=== PATIENT | male | born 1975 | race Caucasian/White ===

== ENCOUNTER 2016-11-27 14:50 | Emergency (ER) | payer SELFPAY ==
[2016-11-27 15:19] VITALS: BMI 34.7
--- NOTE | 2016-11-27 15:40 | EDPRACDOC ---
- General Information Chief Complaint: Back Pain Stated Complaint: SCIATIC PAIN Time Seen by Provider: 11/27/16 15:29 Home Medications: Home Medications Pravastatin Sodium 20 mg PO DAILY 05/05/13 Tramadol HCl [Ultram] 100 mg PO Q6H 05/05/13 Ondansetron [Zofran Odt] 4 mg PO Q6H PRN #15 tab.rapdis 11/13/14 Ciprofloxacin HCl [Cipro] 500 mg PO BID #20 tab 09/10/15 Hydrocodone Bit/Acetaminophen [Lortab 5/325] 1 tab PO Q4H PRN #20 tab 09/10/15 Promethazine [Phenergan] 25 mg PO Q8H PRN #30 tab 09/10/15 Cyclobenzaprine HCl [Flexeril] 10 mg PO TID PRN #20 tablet 11/27/16 Hydrocodone Bit/Acetaminophen [Hydrocodon-Acetaminophen 5-325] 1 tab PO Q6 PRN # 15 tab 11/27/16 Prednisone [Deltasone, Orasone] 40 mg PO DAILY 5 Days 11/27/16 Promethazine Dextromethorphan [Phenergan DM] 5 ml PO Q6 PRN #120 ml 11/27/16 Allergies/Adverse Reactions: Allergies Allergy/AdvReac Type Severity Reaction Status Date / Time No Known Allergies Allergy Verified 09/10/15 04:46 - History of Present Illness Onset: YESTERDAY HPI: PT COMPLAINS OF "BACK WENT OUT", COMPLAINS OF SHARP PAIN IN RIGHT LOWER BACK, PT HAS HX OF "SLIPPED DISC", STATES HIS BACK "GOES OUT" AT TIMES. PT ALSO STATES HE HAS HAD FEVERS, COUGH, CONGESTION SINCE LAST NIGHT WELL. Pain Location: Reports: Right, Lower, Lumbar Pain Radiates To: Reports: None Pain Caused By: Reports: Spontaneous Relevant History: Reports: Chronic back pain Pain Severity: Reports: Severe Pain Quality: Reports: Sharp, Stabbing Worsened By: Reports: Movement, Twisting Associated Signs and Symptoms: Denies: Abdominal Pain, Dysuria, Hematuria, Nausea, Vomiting ED Past Medical History - History Reviewed Yes Nurses notes reviewed and agree except as marked - Patient Medical History Cardiac History: Reports: Hypercholesterolemia Additional Past Medical History: SCIATICA. SLIPPED LUMBAR DISC - Social Medical History Smoking Status: Former smoker ETOH: None Substance Abuse: None EDM Review of Systems - Review of Systems Constitutional: Fever Eyes: negative: Blurred Vision, Double Vision Ears: negative: Drainage, Pain Throat: negative: Pain Nose: Congestion, Discharge Respiratory: Cough. negative: Shortness of Breath, Wheezing Cardiovascular: negative: Chest Pain, Palpitations Gastrointestinal: negative: Diarrhea, Nausea, Pain, Vomiting Genitourinary: negative: Dysuria, Frequency Neurological: negative: Dizziness, Headache, Numbness, Weakness Musculoskeletal: Back Integumentary: No Symptoms Reported - Physical Exam Constitutional: Alert (Awake), No apparent distress Oriented to: Time, Person, Place Last recorded Vital Signs: Last Vital Signs Temp 101.5 F H 11/27/16 15:17 Pulse 113 11/27/16 15:17 Resp 20 11/27/16 15:17 BP 146/85 11/27/16 15:17 Pulse Ox 96 11/27/16 15:17 Oxygen Pulse Oxygen Saturation 96 O2 Device Room Air Oxygen Flow Rate Fraction of Inspired Oxygen ( FIO2) - HEENT Head: Normal ( normocephalic) Eye Exam: Normal (PERRL, EOMI, Sclera white) Oropharynx: Normal (Pharynx:Moist without exudate,Gums-no swelling) Tympanic Membrane: Dull ENT EAC: Normal TMJ: Normal Nose: No Symptoms Reported (septum midline) Neck: Normal (FROM, trachea at midline) - Respiratory/Cardiovascular Respiratory: Normal - CTA (BBS clear to auscultation without adventitious sounds ) Cardiovascular: Normal (RRR without murmur, gallop or rub) - GI Auscultation: Normal (NABS) Palpation: Normal (Soft,No rebound or guarding, non distended) Tenderness: Non tender Nieto's Sign: Negative - Musculoskeletal Back: Normal (Non-Tender) Extremities: Normal (Normal tone, Pulses 2+ No cyanosis or edema, FROM) - Integumentary Skin: Normal, Warm, Dry Lymphatics: Normal (no adenopathy) - Neurologic Memory Impaired: Normal Motor Function: Normal (Normal tone, Pulses 2+ No cyanosis or edema, FROM) Cranial Nerve: Normal (CN II-X11 intact sensation, strength 5/5) Cerebellar: Normal Mood Description: Normal Perception: Normal ED Back Exam - Neurologic Motor Deficit: None - Musculoskeletal Cervical: Normal Thoracic: Normal Lumbar: Tender Midline: Tender Paraspinous: Tender Straight Leg Raise: Negative Pelvis: Normal - Differential Diagnosis DJD, HNP, Musculoskeletal pain, Strain - Results 11/27/16 16:24 Microbiology 11/27/16 15:40 Nasal Washing/Aspirate Or Swab Influenza Type A Antigen Screen - Final NEGATIVE Please note: A NEGATIVE result does not exclude an influenza virus infection. It is a presumptive result and, if required, confirmation should be done using either a virus culture or an FDA-cleared influenza A&B molecular assay. ("NORMAL" value = "NEGATIVE".) 11/27/16 15:40 Nasal Washing/Aspirate Or Swab Influenza Type B Antigen Screen - Final NEGATIVE Please note: A NEGATIVE result does not exclude an influenza virus infection. It is a presumptive result and, if required, confirmation should be done using either a virus culture or an FDA-cleared influenza A&B molecular assay. ("NORMAL" value = "NEGATIVE".) Laboratory Results - last 24 hr 11/27/16 13:58 Urine Color Yellow Urine Clarity Clear Urine pH 8.0 Ur Specific [place] 1.005 Urine Protein Neg Urine Glucose (UA) Neg Urine Ketones Neg Urine Occult Blood 1+ H Urine Nitrite Neg Urine Bilirubin Neg Urine Urobilinogen <2.0 Ur Leukocyte Esterase Neg Urine RBC 2-5 H Urine Bacteria Few - Diagnostic Imaging CXR Image interpreted by: Radiologist CHEST - 2 VIEW COMPARISON: 12/11/2011 FINDINGS: Cardiac shadow is within normal limits. The lungs are well aerated bilaterally. No focal infiltrate or sizable effusion is seen. No bony abnormality is noted. IMPRESSION: No active disease. Decision Time to Discharge: 16:25 - Departure Disposition: Home Condition: Stable Final Diagnosis: Acute sciatica Upper respiratory infection Qualifiers: URI type: unspecified URI Qualified Code(s): J06.9 - Acute upper respiratory infection, unspecified Instructions: Upper Respiratory Infection (ED), Sciatica (ED) Education/Counseling Given To: Patient Education/Counseling Given Regarding: Diagnosis, Treatment, Prognosis, Follow Up Referrals: Justyn Donohue MD [Primary Care Provider] - One Week Prescriptions: Cyclobenzaprine HCl [Flexeril] 10 mg PO TID PRN #20 tablet PRN Reason: Muscle Spasms Hydrocodone Bit/Acetaminophen [Hydrocodon-Acetaminophen 5-325] 1 tab PO Q6 PRN # 15 tab PRN Reason: Pain Prednisone [Deltasone, Orasone] 40 mg PO DAILY 5 Days Promethazine Dextromethorphan [Phenergan DM] 5 ml PO Q6 PRN #120 ml PRN Reason: Cough Additional Instructions: Back Pain: apply warm compresses to affected area 20 mins at a time 4 - 5 times daily as needed for pain Rest, drink plenty of fluids, use Tylenol every 4 hours and Motrin every 6 hours as needed for pain or fever, return to the ED for any worsening symptoms or concerns.
[2016-11-27] MEDS ORDERED: CYCLOBENZAPRINE 10 MG TAB PO ONE (15:41)
[2016-11-27] MEDS ORDERED: IBUPROFEN 800 MG TAB PO ONE (15:41)
--- NOTE | 2016-11-27 16:14 | DIRPT ---
CLINICAL DATA: Fever and cough EXAM: CHEST - 2 VIEW COMPARISON: 12/11/2011 FINDINGS: Cardiac shadow is within normal limits. The lungs are well aerated bilaterally. No focal infiltrate or sizable effusion is seen. No bony abnormality is noted. IMPRESSION: No active disease. Electronically Signed By: Justyn Tejada M.D. On: 11/27/2016 16:12
[2016-11-27 16:17] LABS: LEUKOCYTES/URINE NEG (NEGATIVE); NITRITE/URINE NEG (NEGATIVE); URINE OCCULT BLOOD 1+ (NEG/TRACE)
[2016-11-27 16:45] VITALS: BP 138/78; PULSE 101; TEMP 99
== END 2016-11-27 16:39 | disposition home or self-care (01) ==
LOC: EDMC 14:50
DX: M54.30 Sciatica, unspecified side (principal); J06.9 Acute upper respiratory infection, unspecified
CPT/HCPCS: 71020; 81001; 87804; 99283; J3490